=== PATIENT | female | born 1985 | race Caucasian/White ===

== ENCOUNTER → 2016-06-25 | Outpatient (CLI) | payer BC ==
[~2016-06-25] MED LIST: GADAVIST IV PRN; PROC1TAB5 PO; SUMA25TA12 PO
[2016-06-25 18:58] LABS: BASO % 0.3 %; BASO ABS # 0.02 K/uL (0-0.2); COMPLETE YES; EOS % 0.8 %; HEMATOCRIT 40.3 % (37-47); IG% 0.2 %; LYMPH % 35.2 %; LYMPH ABS # 2.34 K/uL (1.2-3.4); MEAN CELL VOLUME 91.4 fL (80-100); MEAN CORPUSCULAR HEMOGLOBIN 31.3 pg (25-34); MEAN CORPUSCULAR HGB CONC 34.2 g/dl (32-36); MEAN PLATELET VOLUME 9.9 fL (7.4-10.4); MONO % 5.3 %; NEUT % 58.2 %; PLATELET COUNT 256 K/uL (130-400); RED BLOOD COUNT 4.41 M/uL (4.2-5.4); WHITE BLOOD COUNT 6.65 K/uL (4.8-10.8)
[2016-06-25 19:30] LABS: ALT/SGPT 30 U/L (12-78); AST/SGOT 18 U/L (15-37); BLOOD UREA NITROGEN 20 mg/dl (7-18); BUN/CREATININE RATIO 20.8 (10-20); CALCIUM 9.6 mg/dl (8.5-10.1); CARBON DIOXIDE 28 mmol/L (21-32); CHLORIDE 103 mmol/L (98-107); CREATININE 0.96 mg/dl (0.60-1.20); GLUCOSE 81 mg/dl (70-99); POTASSIUM 3.9 mmol/L (3.5-5.1); SODIUM 139 mmol/L (136-145)
[2016-06-25 19:33] LABS: ALB/GLOB RATIO 1.2 (0.9-2); ALKALINE PHOSPHATASE 47 U/L (45-117); RHEUMATOID FACTOR < 10.0 U/mL (0-15)
[2016-06-25 20:14] LABS: LYME DISEASE AB IGG NEG (NEG); LYME DISEASE AB IGM NEG (NEG)
--- NOTE | 2016-06-25 23:03 | DIAGNOSTIC IMAGING REPORT ---
BRAIN COMBO FOR MS CLINICAL HISTORY: Headache. Demyelinating disease. COMPARISON STUDY: MRI of the brain January 18, 2013. TECHNIQUE: Utilizing a 1.5 [place] magnet, multiplanar, multiecho imaging of the brain was performed pre and postcontrast administration. Injection of 6 cc of Gadavist IV was uneventful. FINDINGS: No areas of restricted diffusion are present. No acute intracranial hemorrhage, midline shift or mass effect is present. Brain volume is normal. Ventricular system is normal. The basilar cisterns are patent. Flow-voids for the major intracranial vessels are present. There are no intracranial masses or areas of pathologic enhancement. Numerous subcortical and periventricular white matter T2 hyperintense foci are similar to MRI of January 18, 2013. The appearance of the brain is unchanged. No enhancement is identified to suggest active demyelination. The calvarium is intact. Orbits and sinuses are unremarkable. IMPRESSION: 1. No acute intracranial findings. 2. No change in numerous T2 hypertense foci since MRI of January 18, 2013. These remain nonspecific. No new areas of signal abnormality identified. No evidence of active demyelination. Electronically signed by: Guy Archer M.D. 06/25/2016 11:01 PM Dictated Date/Time: 06/25/2016 7:56 PM
[2016-07-01 08:51] LABS: ANTI-CENTROMERE AB <1.0 NEG AI (<1.0 NEG); ANTI-SS-A <1.0 NEG AI (<1.0 NEG); ANTI-SS-B <1.0 NEG AI (<1.0 NEG); DNA ds CRITHIDIA NEGATIVE (NEGATIVE); Sm Antibody <1.0 NEG AI (<1.0 NEG)
--- NOTE | 2016-07-03 12:26 | CODING QUERY MEDICAL NECESSITY ---
: 1985 SUPPORTING DIAGNOSIS NEEDED A supporting diagnosis is required for the test/procedure performed on this patient in order for us to be reimbursed by the patient's insurance. Please provide a supporting diagnosis for the following test/procedure listed below next to the test name along with your signature. *If there is no additional diagnosis for this patient that would support the following test/procedure please document that below next to the test/procedure. Test(s)/Procedure(s) that require a supporting diagnosis: * VITAMIN D, 25-HYDROXY DOS: 06/25/16 DIAGNOSIS: Provider Signature: Date: Thank you Karrie Elaine Health Information Management Once completed, please kindly fax back to [phone] For questions please call [phone]
== END | disposition home or self-care (01) ==
LOC: C.MRI 17:11
PROVIDERS: ATTEND Psychiatry & Neurology Neurology
DX: G37.9 Demyelinating disease of central nervous system, unspecified (principal); R51 Headache; M79.1 Myalgia

== ENCOUNTER → 2016-08-31 | Outpatient (CLI) | payer BC ==
[~2016-08-31] MED LIST changes: -GADAVIST IV PRN
--- NOTE | 2016-08-31 14:47 | DIAGNOSTIC IMAGING REPORT ---
L-SPINE MIN 4 VIEWS ROUTINE CLINICAL HISTORY: Lower back pain. COMPARISON: None FINDINGS: Alignment of the lumbar spine is anatomic. Vertebral body heights are maintained. There is no fracture or suspicious lesion. Disc spaces are preserved. Sacroiliac joints are intact. Mild irregularity of the inferior endplate of L1 is likely degenerative. IMPRESSION: 1. No acute lumbar spine fracture or subluxation. 2. Minimal multilevel degenerative changes, most pronounced at the L1-L2 level. Electronically signed by: Guy Archer M.D. 08/31/2016 2:45 PM Dictated Date/Time: 08/31/2016 2:44 PM
--- NOTE | 2016-08-31 14:50 | DIAGNOSTIC IMAGING REPORT ---
SI JOINTS 3 OR MORE VIEWS CLINICAL HISTORY: Lower back pain. COMPARISON STUDY: No previous studies for comparison. FINDINGS: The sacroiliac joints are intact without evidence for ankylosis. No fracture or suspicious lesion is identified on this exam. No erosions are identified. IMPRESSION: No abnormality of the sacroiliac joints. Electronically signed by: Guy Archer M.D. 08/31/2016 2:49 PM Dictated Date/Time: 08/31/2016 2:48 PM
[2016-09-02 20:39] LABS: REFERENCE QUEST TEST REPORT
[2016-09-03 16:30] LABS: ANAPLASMA PHAGOCYTOPHIL IGG <1:64 (<1:64); ANAPLASMA PHAGOCYTOPHIL IGM <1:20 (<1:20)
== END | disposition home or self-care (01) ==
LOC: C.RAD1850 13:33
PROVIDERS: ATTEND Family Medicine
DX: G43.909 Migraine, unspecified, not intractable, without status migrainosus (principal); M54.30 Sciatica, unspecified side; M54.2 Cervicalgia